=== PATIENT | male | born 1955 | race Caucasian/White ===

== ENCOUNTER → 2022-01-03 | Day surgery (SDC) | payer MEDICARE ==
[~2022-01-03] VITALS: Ht 177.8 cm; Wt 76.2 kg
[~2022-01-03] MED LIST: ASPIRIN EC81 MG PO; BACLOFEN 10MG T10 MG PO; MELATONIN10 MG PO
== END | disposition home or self-care (01) ==
LOC: FAS 06:56
DX: Z12.11 Encounter for screening for malignant neoplasm of colon (principal); K57.30 Diverticulosis of large intestine without perforation or abscess without bleeding; F17.210 Nicotine dependence, cigarettes, uncomplicated
CPT/HCPCS: J1610; J2250; J2704; J7120